=== PATIENT | male | born 1990 ===

== ENCOUNTER 2016-05-22 18:16 | Emergency (ER) | payer OTHER ==
[~2016-05-22] VITALS: Ht 180.3 cm; Wt 103.2 kg
[~2016-05-22 18:16] MED LIST: NO HOME MEDICATIONS; ZITHROMAX Z PA250 MG PO
[2016-05-22 18:20] VITALS: BP 126/69; PULSE 97; TEMP 100.1
== END 2016-05-22 19:48 | disposition left against medical advice (07) ==
LOC: COL.ER 18:16
DX: R05 Cough (principal)

== ENCOUNTER → 2019-12-29 | Outpatient (CLI) | payer OTHER, MEDICAID | LOC: ZCOL.LAB 18:57 | DX: Z20.828 Contact with and (suspected) exposure to other viral communicable diseases (principal) ==